=== PATIENT | female | born 1960 | race African-American/Black ===

== ENCOUNTER 2018-12-21 01:56 | Inpatient (IN) | payer MEDICARE, MEDICAID ==
[~2018-12-21] VITALS: Ht 162.6 cm; Wt 81.6 kg
[~2018-12-21 01:56] MED LIST: ACET-3161 PO; FLEXERIL PO; HYDR-519 PO; HYDR12.529 PO
[2018-12-21] MEDS ORDERED: ALBUTEROL (0.083%) 2.5MG/3ML NEB HHN STA (03:20)
[2018-12-21] MEDS ORDERED: SODIUM CHLORIDE 0.9% 1,000 ML IV ONE (03:20)
[2018-12-21] MEDS ORDERED: ONDANSETRON HCL 4MG/2ML INJ IV STA (03:20)
[2018-12-21] MEDS ORDERED: IPRATROPIUM BROMIDE (0.02%) 0.5MG/2.5ML NEB HHN STA (03:20)
[2018-12-21] MEDS: GUAIFENESIN/CODEINE 200-20MG/10ML UDC PO ONE ×2 (03:43→03:44)
[2018-12-21] MEDS ORDERED: GUAIFENESIN/CODEINE 100-10MG/5ML UDC PO SCH (03:45)
[2018-12-21 03:53] LABS: EOSINOPHILS % 3.5 % (0.0-5.0); HEMATOCRIT. 36.3 % (36.0-48.0); HEMOGLOBIN. 12.3 g/dL (12.0-16.0); LYMPHOCYTES % 34.8 % (20.0-50.0); MEAN CORPUSCULAR HEMOGLOBIN 30.8 pg (28.0-32.0); MEAN CORPUSCULAR VOLUME 90.7 fL (81.0-99.0); MEAN PLATELET VOLUME 7.6 fl (7.4-10.4); MONOCYTES % 6.2 % (2.0-8.0); NEUTROPHILS % 54.5 % (40.0-76.0); PLATELET 274 x1000/uL (130-400); RED BLOOD CELL COUNT 4.01 mill/uL (4.2-5.4); RED CELL DISTRIBUTION WIDTH 12.9 % (11.6-14.6)
[2018-12-21 03:58] LABS: CHLORIDE 107 mEq/L (98-107)
[2018-12-21] MEDS ORDERED: AZITHROMYCIN 500 MG in DEXT 5% WATER 250 ML IV ONE (05:45)
[2018-12-21] MEDS ORDERED: CEFTRIAXONE 1 G PREMIX 50 ML IV ONE (05:45)
[2018-12-21] MEDS ORDERED: CEFTRIAXONE 1,000 MG in DEXTROSE 5% WATER 50 ML IV ONE (06:45)
[2018-12-21] MEDS ORDERED: IOHEXOL-300 100 ML BOTTLE ONE (07:10)
[2018-12-21 08:00] VITALS: BP 144/58
[2018-12-21] MEDS ORDERED: TRAMADOL 50MG TABLET PO PRN (08:00)
[2018-12-21] MEDS ORDERED: MORPHINE SULFATE 2 MG/ML CPJ (NOT FOR IM USE) IV PRN (08:00)
[2018-12-21] MEDS ORDERED: IPRATROPIUM/ALBUTEROL 0.5-3(2.5)MG/3ML NEB NEB PRN (08:00)
[2018-12-21] MEDS ORDERED: ACETAMINOPHEN 325MG TABLET PO PRN (08:00)
[2018-12-21] MEDS ORDERED: GUAIFENESIN 200MG/10ML SUGAR FREE UDC PO PRN (08:00)
[2018-12-21] MEDS ORDERED: DOCUSATE SODIUM 100MG CAPSULE PO PRN (08:00)
[2018-12-21] MEDS ORDERED: LORAZEPAM 0.5MG TABLET PO PRN (08:00)
[2018-12-21] MEDS ORDERED: POTASSIUM CHLORIDE 20MEQ TABLET SR PO NR (08:00)
[2018-12-21] MEDS ORDERED: ONDANSETRON HCL 4MG/2ML INJ IV PRN (08:00)
[2018-12-21] MEDS ORDERED: NITROGLYCERIN 0.4MG TABLET SL SL PRN (08:00)
[2018-12-21 08:45] VITALS: BP 114/58
[2018-12-21] MEDS ORDERED: ICOS1CAP PO (09:17)
[2018-12-21] MEDS ORDERED: TRIA1TAB92 PO (09:17)
[2018-12-21] MEDS: GUAIFENESIN/DM 600MG/30MG ER TAB 12HR PO SCH ×2 (10:37→20:10)
[2018-12-21] MEDS: FAMOTIDINE 20MG TABLET PO SCH ×2 (10:37→20:10)
[2018-12-21 12:00] VITALS: BP 100/61
[2018-12-21 12:14] LABS: C REACTIVE PROTEIN QUANT 5.8 mg/L (0.0-3.0)
[2018-12-21] MEDS ORDERED: RACEPINEPHRINE 2.25% 0.5ML NEB VIAL HHN PRN (13:30)
[2018-12-21] MEDS ORDERED: IPRATROPIUM/ALBUTEROL 0.5-3(2.5)MG/3ML NEB HHN PRN (13:30)
[2018-12-21] MEDS ORDERED: SODIUM CHLORIDE 10% FOR INH 15ML VIAL NEB INH SCH (13:30)
[2018-12-21] MEDS: METHYLPREDNISOLONE SOD SUCC 40 MG/ML VIAL IV SCH ×2 (13:57→21:56)
[2018-12-21 15:23] LABS: INR 1.1; PROTHROMBIN TIME 10.8 sec (9.6-11.0)
[2018-12-21 16:00] VITALS: BP 100/61
[2018-12-21] MEDS: IPRATROPIUM/ALBUTEROL 0.5-3(2.5)MG/3ML NEB HHN SCH ×2 (17:37→20:31)
[2018-12-21 19:03] LABS: CLARITY URINE CLEAR (CLEAR); COLOR URINE YELLOW (YELLOW); KETONES URINE NEGATIVE (NEGATIVE); LEUKOCYTE ESTERASE URINE NEGATIVE (NEGATIVE); NITRITE URINE NEGATIVE (NEGATIVE); OCCULT BLOOD URINE 1+ (NEGATIVE); PROTEIN URINE NEGATIVE (NEGATIVE); SPECIFIC GRAVITY URINE 1.047 (1.005-1.030)
[2018-12-21 20:00] VITALS: BP 113/69
[2018-12-21 20:16] LABS: *AMPHETAMINES SCREEN URINE NEGATIVE (NEGATIVE); *BARBITURATES SCREEN URINE NEGATIVE (NEGATIVE)
[2018-12-21 20:17] LABS: *BENZODIAZEPINES SCREEN URINE NEGATIVE (NEGATIVE); *COCAINE SCREEN URINE NEGATIVE (NEGATIVE); CANNABINOID URINE SCREEN NEGATIVE (NEGATIVE); METHADONE URINE SCREEN NEGATIVE (NEGATIVE); OPIATES URINE SCREEN PRESUMTIVE POSITIVE (NEGATIVE); PHENCYCLIDINE URINE SCREEN NEGATIVE (NEGATIVE)
[2018-12-21] MEDS: ZOLPIDEM TARTRATE 5MG TABLET PO PRN (22:14)
[2018-12-22] VITALS: BP 104/57
[2018-12-22] MEDS: IPRATROPIUM/ALBUTEROL 0.5-3(2.5)MG/3ML NEB HHN SCH ×6 (00:41→21:31)
[2018-12-22] MEDS: ACETYLCYSTEINE 100MG/ML 10% VIAL 4ML INH SCH ×3 (00:42→17:20)
[2018-12-22 04:00] VITALS: BP 112/56
[2018-12-22] MEDS: METHYLPREDNISOLONE SOD SUCC 40 MG/ML VIAL IV SCH ×3 (05:23→18:02)
[2018-12-22 08:00] VITALS: BP 100/49
[2018-12-22] MEDS ORDERED: CEFTRIAXONE 1,000 MG in DEXTROSE 5% WATER 50 ML IV SCH (08:00)
[2018-12-22] MEDS ORDERED: AZITHROMYCIN 500 MG in DEXT 5% WATER 250 ML IV SCH (08:00)
[2018-12-22] MEDS: GUAIFENESIN/DM 600MG/30MG ER TAB 12HR PO SCH ×2 (09:11→21:55)
[2018-12-22] MEDS: FAMOTIDINE 20MG TABLET PO SCH ×2 (09:11→21:56)
[2018-12-22 10:11] LABS: CA 27.29 5.7 U/mL (0.0-38.6)
[2018-12-22 12:00] VITALS: BP 114/65
[2018-12-22] MEDS: BUTALBITAL/ACETAMINOPHEN/CAFFEINE 50/325/40MG TABLET PO PRN ×2 (14:21→21:56)
[2018-12-22 16:00] VITALS: BP 112/68
[2018-12-22 20:00] VITALS: BP 116/59
[2018-12-22] MEDS: ZOLPIDEM TARTRATE 5MG TABLET PO PRN (21:56)
[2018-12-23] VITALS: BP 121/55
[2018-12-23] MEDS: ACETYLCYSTEINE 100MG/ML 10% VIAL 4ML INH SCH ×2 (00:45→08:49)
[2018-12-23] MEDS: IPRATROPIUM/ALBUTEROL 0.5-3(2.5)MG/3ML NEB HHN SCH ×6 (00:45→20:29)
[2018-12-23] MEDS ORDERED: OXYC30TA89 PO (02:29)
[2018-12-23 08:00] VITALS: BP 120/66
[2018-12-23 08:07] LABS: CANCER ANTIGEN 125 13.4 U/mL (0.0-38.1)
[2018-12-23] MEDS: METHYLPREDNISOLONE SOD SUCC 40 MG/ML VIAL IV SCH (09:23)
[2018-12-23] MEDS: GUAIFENESIN/DM 600MG/30MG ER TAB 12HR PO SCH ×2 (09:23→21:32)
[2018-12-23] MEDS: FAMOTIDINE 20MG TABLET PO SCH ×2 (09:23→21:33)
[2018-12-23 12:00] VITALS: BP 103/55
[2018-12-23] MEDS ORDERED: AZITHROMYCIN 500 MG in DEXT 5% WATER 250 ML IV SCH (12:00)
[2018-12-23] MEDS: CEFTRIAXONE 1,000 MG in DEXTROSE 5% WATER 50 ML IV SCH (12:03)
[2018-12-23] MEDS: NICOTINE 14MG PATCH TD SCH (12:06)
[2018-12-23] MEDS: BUTALBITAL/ACETAMINOPHEN/CAFFEINE 50/325/40MG TABLET PO PRN ×2 (13:55→19:35)
[2018-12-23] MEDS: LACTULOSE 20G/30ML UDC PO SCH ×2 (13:56→21:33)
[2018-12-23 16:00] VITALS: BP 113/63
[2018-12-23 16:58] LABS: HEMATOCRIT. 34.2 % (36.0-48.0); HEMOGLOBIN. 11.2 g/dL (12.0-16.0); MEAN CORPUSCULAR HEMOGLOBIN 29.9 pg (28.0-32.0); MEAN CORPUSCULAR VOLUME 91.5 fL (81.0-99.0); MEAN PLATELET VOLUME 8.1 fl (7.4-10.4); PLATELET 243 x1000/uL (130-400); RED BLOOD CELL COUNT 3.74 mill/uL (4.2-5.4); RED CELL DISTRIBUTION WIDTH 13.4 % (11.6-14.6)
[2018-12-23 17:22] LABS: CHLORIDE 106 mEq/L (98-107)
[2018-12-23 17:54] LABS: PLATELET ESTIMATE NORMAL
[2018-12-23 20:00] VITALS: BP 110/63
[2018-12-23] MEDS: ZOLPIDEM TARTRATE 5MG TABLET PO PRN (21:44)
[2018-12-24] VITALS: BP 107/66
[2018-12-24] MEDS: IPRATROPIUM/ALBUTEROL 0.5-3(2.5)MG/3ML NEB HHN SCH ×3 (00:42→09:46)
[2018-12-24 04:00] VITALS: BP 115/69
[2018-12-24] MEDS: LACTULOSE 20G/30ML UDC PO SCH (06:31)
[2018-12-24 08:00] VITALS: BP 110/54
[2018-12-24] MEDS: FAMOTIDINE 20MG TABLET PO SCH (08:23)
[2018-12-24] MEDS: GUAIFENESIN/DM 600MG/30MG ER TAB 12HR PO SCH (08:23)
[2018-12-24] MEDS: NICOTINE 14MG PATCH TD SCH (08:23)
[2018-12-24] MEDS ORDERED: METHYLPREDNISOLONE SOD SUCC 40 MG/ML VIAL IV SCH (09:00)
[2018-12-24] MEDS: CEFTRIAXONE 1,000 MG in DEXTROSE 5% WATER 50 ML IV SCH (11:01)
[2018-12-24] MEDS ORDERED: LEVO750T21 MT (12:00)
[2018-12-24] MEDS ORDERED: GUAI600T26 MT (12:00)
[2018-12-24] MEDS ORDERED: P20 MT (12:01)
[2018-12-24] MEDS ORDERED: TIOT18CA3 INH (12:01)
[2018-12-24 13:00] VITALS: BP 124/64
== END 2018-12-24 13:15 | disposition home or self-care (01) | DRG 193 ==
LOC: ER 01:56 → 5WST 05:39 → EDBEDREQTM 05:44 → EDBEDREQ 05:44 → ENRESERV 07:33 → SUPCPDRO 07:53
PROVIDERS: ADMIT Internal Medicine; ATTEND Internal Medicine
DX: J18.8 Other pneumonia, unspecified organism (principal); J96.00 Acute respiratory failure, unspecified whether with hypoxia or hypercapnia; J44.0 Chronic obstructive pulmonary disease with (acute) lower respiratory infection; J44.1 Chronic obstructive pulmonary disease with (acute) exacerbation; R04.2 Hemoptysis; J20.9 Acute bronchitis, unspecified; E87.6 Hypokalemia; F17.210 Nicotine dependence, cigarettes, uncomplicated; G43.909 Migraine, unspecified, not intractable, without status migrainosus; I10 Essential (primary) hypertension; K59.00 Constipation, unspecified; R91.8 Other nonspecific abnormal finding of lung field; E66.9 Obesity, unspecified; F10.10 Alcohol abuse, uncomplicated; M19.90 Unspecified osteoarthritis, unspecified site; Z80.49 Family history of malignant neoplasm of other genital organs; Z98.84 Bariatric surgery status; Z68.30 Body mass index [BMI] 30.0-30.9, adult
CPT/HCPCS: 36415; 71045; 71260; 80061; 80305; 81003; 82105; 82378; 83036; 83605; 83880; 84145; 84484; 86140; 86300; 86301; 86304; 87070; 93005; 93306; 93970; 94640; 96374; 97161; 99285; J0456; J0696; J2405; J2920; J7030; J7060; J7131; J7608; J7611; J7620; Q9967

== ENCOUNTER 2019-03-09 19:44 | Inpatient (IN) | payer MEDICARE, MEDICAID ==
[~2019-03-09] VITALS: Ht 162.6 cm; Wt 73.0 kg
[~2019-03-09 19:44] MED LIST changes: -ACET-3161 PO; +BENZ100C86 PO; -FLEXERIL PO; +FLUT1AER INH; -HYDR-519 PO; -HYDR12.529 PO; +IBUP-2028 PO; +ICOS1CAP PO; +LEVA0.6320 IH; +MONT10TA21 PO; +TRIA1TAB94 PO
[2019-03-09] MEDS ORDERED: ACETAMINOPHEN 325MG TABLET PO STA (20:21)
[2019-03-09] MEDS ORDERED: LEVOFLOXACIN 750MG PREMIX 150 ML IV ONE (20:30)
[2019-03-09 21:08] LABS: BASOPHILS % 1.1 % (0.0-2.0); EOSINOPHILS % 3.2 % (0.0-5.0); HEMATOCRIT. 34.7 % (36.0-48.0); HEMOGLOBIN. 11.8 g/dL (12.0-16.0); LYMPHOCYTES % 13.9 % (20.0-50.0); MEAN CORPUSCULAR HEMOGLOBIN 29.9 pg (28.0-32.0); MEAN CORPUSCULAR VOLUME 87.9 fL (81.0-99.0); MEAN PLATELET VOLUME 7.6 fl (7.4-10.4); MONOCYTES % 7.6 % (2.0-8.0); NEUTROPHILS % 74.2 % (40.0-76.0); PLATELET 380 x1000/uL (130-400); PROTHROMBIN TIME 10.3 sec (9.6-11.0); RED BLOOD CELL COUNT 3.94 mill/uL (4.2-5.4); RED CELL DISTRIBUTION WIDTH 13.5 % (11.6-14.6)
[2019-03-09 21:12] LABS: CHLORIDE 102 mEq/L (98-107)
[2019-03-09] MEDS ORDERED: SODIUM CHLORIDE 0.9% 1000ML BAG (SEPSIS BOLUS) IV ONE (22:00)
[2019-03-09] MEDS ORDERED: OSELTAMIVIR 75MG CAPSULE PO ONE (23:00)
[2019-03-09 23:33] LABS: CLARITY URINE CLOUDY (CLEAR); COLOR URINE YELLOW (YELLOW); KETONES URINE NEGATIVE (NEGATIVE); LEUKOCYTE ESTERASE URINE TRACE (NEGATIVE); NITRITE URINE NEGATIVE (NEGATIVE); OCCULT BLOOD URINE TRACE (NEGATIVE); PH URINE 7.5 (4.5-8.0); PROTEIN URINE NEGATIVE (NEGATIVE)
[2019-03-09] MEDS ORDERED: KETOROLAC 15MG/ML VIAL IV ONE (23:45)
[2019-03-10] MEDS ORDERED: ACETAMINOPHEN 325MG TABLET PO PRN (10:30)
[2019-03-10] MEDS ORDERED: IPRATROPIUM/ALBUTEROL 0.5-3(2.5)MG/3ML NEB HHN PRN (10:30)
[2019-03-10] MEDS ORDERED: ONDANSETRON HCL 4MG/2ML INJ IV PRN (10:30)
[2019-03-10] MEDS ORDERED: GUAIFENESIN/DM 600MG/30MG ER TAB 12HR PO PRN (12:15)
[2019-03-10] MEDS ORDERED: ALBUTEROL (0.083%) 2.5MG/3ML NEB HHN STA (18:39)
[2019-03-10] MEDS ORDERED: IPRATROPIUM BROMIDE (0.02%) 0.5MG/2.5ML NEB HHN STA (18:39)
[2019-03-10] MEDS: KETOROLAC 30MG/ML VIAL IV PRN (20:29)
[2019-03-10] MEDS ORDERED: CEFTRIAXONE 1 G PREMIX 50 ML IV NR (21:00)
[2019-03-10] MEDS ORDERED: IPRATROPIUM BROMIDE (0.02%) 0.5MG/2.5ML NEB HHN PRN (21:00)
[2019-03-10 22:00] VITALS: BP 100/60
[2019-03-11 00:21] VITALS: BP 100/60
[2019-03-11] MEDS ORDERED: IPRATROPIUM/ALBUTEROL 0.5-3(2.5)MG/3ML NEB HHN SCH (02:00)
[2019-03-11] MEDS ORDERED: SODIUM CHLORIDE 10% FOR INH 15ML VIAL NEB INH SCH (02:24)
[2019-03-11] MEDS: KETOROLAC 30MG/ML VIAL IV PRN ×2 (03:54→20:56)
[2019-03-11 04:00] VITALS: BP 107/70
[2019-03-11 08:00] VITALS: BP 102/69
[2019-03-11] MEDS: BUDESONIDE 0.5MG/2ML NEB HHN SCH ×2 (09:11→21:43)
[2019-03-11] MEDS: AZITHROMYCIN 500 MG TABLET PO SCH (09:22)
[2019-03-11 11:41] VITALS: BP 98/70
[2019-03-11 15:13] LABS: CHLORIDE 109 mEq/L (98-107)
[2019-03-11 15:20] LABS: BASOPHILS % 1.2 % (0.0-2.0); EOSINOPHILS % 5.4 % (0.0-5.0); HEMATOCRIT. 32.6 % (36.0-48.0); HEMOGLOBIN. 10.7 g/dL (12.0-16.0); LYMPHOCYTES % 21.8 % (20.0-50.0); MEAN CORPUSCULAR HEMOGLOBIN 29.3 pg (28.0-32.0); MEAN CORPUSCULAR VOLUME 89.5 fL (81.0-99.0); MEAN PLATELET VOLUME 7.1 fl (7.4-10.4); MONOCYTES % 8.6 % (2.0-8.0); PLATELET 338 x1000/uL (130-400); RED BLOOD CELL COUNT 3.64 mill/uL (4.2-5.4); RED CELL DISTRIBUTION WIDTH 13.5 % (11.6-14.6)
[2019-03-11 16:00] VITALS: BP 114/68
[2019-03-11 20:00] VITALS: BP 107/59
[2019-03-11] MEDS ORDERED: ENOXAPARIN 40MG/0.4ML SYR SUBCUT SCH (20:45)
[2019-03-11] MEDS ORDERED: CEFTRIAXONE 1 G PREMIX 50 ML IV SCH ×2 (21:00→22:00)
[2019-03-12] VITALS: BP 105/62
[2019-03-12 04:00] VITALS: BP 107/60
[2019-03-12 08:00] VITALS: BP 114/64
[2019-03-12] MEDS: AZITHROMYCIN 500 MG TABLET PO SCH (08:50)
[2019-03-12] MEDS: BUDESONIDE 0.5MG/2ML NEB HHN SCH (09:43)
[2019-03-12 12:10] VITALS: BP 104/64
[2019-03-12 15:42] VITALS: BP 104/64
[2019-03-12] MEDS ORDERED: LEVO750T21 MT ×2 (15:49→15:50)
[2019-03-12 16:23] VITALS: BP 110/72
== END 2019-03-12 17:31 | disposition home or self-care (01) | DRG 871 ==
LOC: ER 19:44 → 6WST 22:55 → EDBEDREQTM 22:56 → EDBEDREQ 22:56 → EDBEDREQSVC 22:56 → ENRESERV 03-10 20:45 → CANBEDREQ 03-11 16:02
PROVIDERS: ADMIT Internal Medicine; ATTEND Internal Medicine
DX: A41.9 Sepsis, unspecified organism (principal); J96.20 Acute and chronic respiratory failure, unspecified whether with hypoxia or hypercapnia; J18.9 Pneumonia, unspecified organism; E44.1 Mild protein-calorie malnutrition; J44.0 Chronic obstructive pulmonary disease with (acute) lower respiratory infection; J98.11 Atelectasis; Z96.653 Presence of artificial knee joint, bilateral; Z98.84 Bariatric surgery status; R59.0 Localized enlarged lymph nodes; R91.8 Other nonspecific abnormal finding of lung field; I11.9 Hypertensive heart disease without heart failure; D64.9 Anemia, unspecified; M19.90 Unspecified osteoarthritis, unspecified site; Z80.8 Family history of malignant neoplasm of other organs or systems; Z79.899 Other long term (current) drug therapy; Z72.0 Tobacco use; Z68.27 Body mass index [BMI] 27.0-27.9, adult
CPT/HCPCS: 36415; 71045; 80048; 80053; 81003; 82962; 83605; 84145; 84484; 85025; 87804; 93005; 94640; 96361; 96365; 96368; 96374; 96376; 99291; J0696; J1650; J1885; J1956; J7030; J7040; J7626

== ENCOUNTER 2019-03-26 17:47 | Inpatient (IN) | payer MEDICARE, MEDICAID ==
[~2019-03-26] VITALS: Ht 162.6 cm; Wt 87.3 kg
[~2019-03-26 17:47] MED LIST changes: -BENZ100C86 PO; -FLUT1AER INH; -IBUP-2028 PO; -ICOS1CAP PO; -LEVA0.6320 IH; +LEVO750T21 MT; -MONT10TA21 PO; -TRIA1TAB94 PO
[2019-03-26] MEDS ORDERED: SODIUM CHLORIDE 0.9% 1000ML BAG (SEPSIS BOLUS) IV ONE (18:15)
[2019-03-26 18:27] LABS: HEMATOCRIT. 36.5 % (36.0-48.0); HEMOGLOBIN. 11.9 g/dL (12.0-16.0); MEAN CORPUSCULAR HEMOGLOBIN 29.2 pg (28.0-32.0); MEAN CORPUSCULAR VOLUME 89.1 fL (81.0-99.0); MEAN PLATELET VOLUME 6.8 fl (7.4-10.4); PLATELET 541 x1000/uL (130-400); RED BLOOD CELL COUNT 4.09 mill/uL (4.2-5.4); RED CELL DISTRIBUTION WIDTH 13.6 % (11.6-14.6)
[2019-03-26 18:36] LABS: CHLORIDE 108 mEq/L (98-107)
[2019-03-26 18:39] LABS: ETHANOL BLOOD < 10 mg/dL
[2019-03-26] MEDS ORDERED: VANCOMYCIN 1 G PREMIX 200 ML IV ONE (18:45)
[2019-03-26] MEDS ORDERED: PIPERACILLIN/TAZ 3.375G PREMIX 50 ML IV ONE (18:45)
[2019-03-26 20:13] LABS: PLATELET ESTIMATE INCREASED
[2019-03-26] MEDS ORDERED: ONDANSETRON HCL 4MG/2ML INJ IV STA (20:34)
[2019-03-26] MEDS ORDERED: MORPHINE SULFATE 4 MG/ML CPJ (NOT FOR IM USE) IV STA (20:34)
[2019-03-26 21:03] LABS: CLARITY URINE CLOUDY (CLEAR); COLOR URINE YELLOW (YELLOW); KETONES URINE NEGATIVE (NEGATIVE); LEUKOCYTE ESTERASE URINE NEGATIVE (NEGATIVE); NITRITE URINE NEGATIVE (NEGATIVE); OCCULT BLOOD URINE TRACE (NEGATIVE); PH URINE 7.5 (4.5-8.0); PROTEIN URINE 2+ (NEGATIVE)
[2019-03-26 21:43] LABS: *AMPHETAMINES SCREEN URINE NEGATIVE (NEGATIVE)
[2019-03-26 21:44] LABS: *BARBITURATES SCREEN URINE NEGATIVE (NEGATIVE); *BENZODIAZEPINES SCREEN URINE NEGATIVE (NEGATIVE); *COCAINE SCREEN URINE NEGATIVE (NEGATIVE); CANNABINOID URINE SCREEN NEGATIVE (NEGATIVE); OPIATES URINE SCREEN NEGATIVE (NEGATIVE); PHENCYCLIDINE URINE SCREEN NEGATIVE (NEGATIVE)
[2019-03-26 21:46] LABS: METHADONE URINE SCREEN NEGATIVE (NEGATIVE)
[2019-03-27] VITALS (10 sets, daily range): BP systolic 95–123; BP diastolic 50–78
[2019-03-27] MEDS ORDERED: MORPHINE SULFATE 2 MG/ML CPJ (NOT FOR IM USE) IV PRN (01:45)
[2019-03-27] MEDS ORDERED: ONDANSETRON HCL 4MG/2ML INJ IV PRN (01:45)
[2019-03-27] MEDS: PIPERACILLIN/TAZOBACTAM 3.375 G in DEXT 5% WATER 100 ML IV SCH ×4 (04:02→21:05)
[2019-03-27] MEDS ORDERED: PIPERACILLIN/TAZOBACTAM 3.375 G/VIAL IV SCH (06:00)
[2019-03-27 10:51] LABS: INR 1.1; PARTIAL THROMBOPLASTIN TIME 33.7 sec (23.4-31.0); PROTHROMBIN TIME 11.7 sec (9.6-11.0)
[2019-03-27] MEDS ORDERED: SODIUM BICARBONATE 4% (2.4MEQ) 5ML VIAL IV ONE (11:25)
[2019-03-27] MEDS: VANCOMYCIN 1 G PREMIX 200 ML IV SCH (13:51)
[2019-03-27] MEDS: HYDROCODONE/APAP 7.5/325MG 1 TAB TABLET PO PRN ×2 (14:14→21:05)
[2019-03-27 14:32] LABS: BG CARBOXYHEMOGLOBIN 0.3 % (0.5-1.5); BG DEOXYHEMOGLOBIN 5.2 % (0.0-5.0); BG FRACTION INSPIRED OXYGEN 21; BG HCO3 ACT 20.3 mmol/L (22.0-26.0); BG METHEMOGLOBIN 0.3 % (0.0-1.5); BG OXYGEN SATURATION 94.8 % (92.0-98.5); BG OXYHEMOGLOBIN 94.2 % (94.0-97.0); BG PH 7.393 (7.350-7.450); BG SAMPLE SITE RIGHT RADIAL; BG VENT MODE ROOM AIR
[2019-03-27] MEDS ORDERED: VANCOMYCIN 1 G PREMIX 200 ML IV SCH (15:00)
[2019-03-27] MEDS: IPRATROPIUM/ALBUTEROL 0.5-3(2.5)MG/3ML NEB HHN SCH ×2 (20:09)
[2019-03-28] VITALS (11 sets, daily range): BP systolic 104–137; BP diastolic 63–88
[2019-03-28] MEDS: PIPERACILLIN/TAZOBACTAM 3.375 G in DEXT 5% WATER 100 ML IV SCH ×4 (03:28→21:12)
[2019-03-28] MEDS: IPRATROPIUM/ALBUTEROL 0.5-3(2.5)MG/3ML NEB HHN SCH ×3 (04:00→12:38)
[2019-03-28] MEDS: VANCOMYCIN 1 G PREMIX 200 ML IV SCH (06:25)
[2019-03-28 07:31] LABS: CHLORIDE 108 mEq/L (98-107)
[2019-03-28 07:35] LABS: BASOPHILS % 1.1 % (0.0-2.0); EOSINOPHILS % 4.6 % (0.0-5.0); HEMATOCRIT. 28.5 % (36.0-48.0); HEMOGLOBIN. 9.5 g/dL (12.0-16.0); LYMPHOCYTES % 25.8 % (20.0-50.0); MEAN CORPUSCULAR HEMOGLOBIN 29.3 pg (28.0-32.0); MEAN CORPUSCULAR VOLUME 87.6 fL (81.0-99.0); MONOCYTES % 9.3 % (2.0-8.0); NEUTROPHILS % 59.2 % (40.0-76.0); PLATELET 355 x1000/uL (130-400); RED BLOOD CELL COUNT 3.25 mill/uL (4.2-5.4); RED CELL DISTRIBUTION WIDTH 13.4 % (11.6-14.6)
[2019-03-28] MEDS: HYDROCODONE/APAP 7.5/325MG 1 TAB TABLET PO PRN ×2 (09:04→21:11)
[2019-03-28] MEDS: BUDESONIDE 0.5MG/2ML NEB HHN SCH ×2 (16:41→20:50)
[2019-03-28] MEDS ORDERED: ZOLPIDEM TARTRATE 5MG TABLET PO PRN (22:00)
[2019-03-29] VITALS (11 sets, daily range): BP systolic 107–147; BP diastolic 56–93
[2019-03-29] MEDS: VANCOMYCIN 1 G PREMIX 200 ML IV SCH ×2 (01:12→18:00)
[2019-03-29] MEDS: PIPERACILLIN/TAZOBACTAM 3.375 G in DEXT 5% WATER 100 ML IV SCH ×3 (03:22→15:54)
[2019-03-29] MEDS: HYDROCODONE/APAP 7.5/325MG 1 TAB TABLET PO PRN ×2 (06:28→15:04)
[2019-03-29 07:51] LABS: CHLORIDE 108 mEq/L (98-107)
[2019-03-29 08:03] LABS: BASOPHILS % 1.2 % (0.0-2.0); HEMOGLOBIN. 9.3 g/dL (12.0-16.0); LYMPHOCYTES % 26.8 % (20.0-50.0); MEAN CORPUSCULAR HEMOGLOBIN 29.1 pg (28.0-32.0); MEAN CORPUSCULAR VOLUME 87.4 fL (81.0-99.0); MEAN PLATELET VOLUME 6.8 fl (7.4-10.4); MONOCYTES % 10.3 % (2.0-8.0); NEUTROPHILS % 57.7 % (40.0-76.0); PLATELET 350 x1000/uL (130-400); RED BLOOD CELL COUNT 3.21 mill/uL (4.2-5.4); RED CELL DISTRIBUTION WIDTH 13.7 % (11.6-14.6)
[2019-03-29] MEDS: BUDESONIDE 0.5MG/2ML NEB HHN SCH (08:19)
[2019-03-29] MEDS ORDERED: IPRATROPIUM BROMIDE (0.02%) 0.5MG/2.5ML NEB HHN SCH (13:15)
== END 2019-03-29 19:13 | disposition home or self-care (01) | DRG 871 ==
LOC: ER 21:37 → 3WST 21:42 → EDBEDREQTM 21:45 → EDBEDREQ 21:45 → ENRESERV 22:54
PROVIDERS: ADMIT Internal Medicine; ATTEND Internal Medicine
PROC: 0W9B3ZZ Drainage of Left Pleural Cavity, Percutaneous Approach (ICD-10-PCS; principal; 2019-03-27)
DX: A41.9 Sepsis, unspecified organism (principal); J18.9 Pneumonia, unspecified organism; J96.20 Acute and chronic respiratory failure, unspecified whether with hypoxia or hypercapnia; J91.8 Pleural effusion in other conditions classified elsewhere; E44.1 Mild protein-calorie malnutrition; E87.2 Acidosis; J98.11 Atelectasis; J44.9 Chronic obstructive pulmonary disease, unspecified; E87.8 Other disorders of electrolyte and fluid balance, not elsewhere classified; I10 Essential (primary) hypertension; J98.09 Other diseases of bronchus, not elsewhere classified; M19.90 Unspecified osteoarthritis, unspecified site; Z87.891 Personal history of nicotine dependence; Z98.84 Bariatric surgery status; Z88.8 Allergy status to other drugs, medicaments and biological substances; Z79.899 Other long term (current) drug therapy; Z68.33 Body mass index [BMI] 33.0-33.9, adult
CPT/HCPCS: 32555; 36415; 36600; 71045; 71250; 80048; 80053; 80202; 80305; 80320; 81003; 82375; 82805; 83605; 84484; 85025; 87804; 93005; 94640; 99291; J2270; J2405; J2543; J3370; J3490; J7030; J7060; J7620; J7626; G0480